=== PATIENT | male | born 1980 | race Two or more races ===

== ENCOUNTER 2023-12-19 08:37 | Emergency (ER) | payer OTHER ==
[~2023-12-19] VITALS: Ht 185.4 cm; Wt 86.2 kg
[2023-12-19] MEDS ORDERED: SODIUM CHLORIDE 0.45 % 500 ML IV STA (09:26)
[2023-12-19 10:03] LABS: PH,URINE 6.5 (5.0-8.0); URINE APPEARANCE Clear; URINE BILIRRUBIN Negative (NEGATIVE); URINE BLOOD Negative; URINE COLOR Yellow; URINE GLUCOSE Negative (NEGATIVE); URINE LEUKOCYTE Negative; URINE NITRATE Negative; URINE PROTEIN Negative (NEGATIVE)
[2023-12-19 10:04] LABS: URINE EPITHELIAL CELLS 1.5 uL (0.0-38.8); URINE WBC 2.5 uL (0.0-23.2)
[2023-12-19 10:06] LABS: URINE BACTERIA 1.2 uL (0.0-1933); URINE RBC 1.5 uL (0.0-20.8)
[2023-12-19 10:13] LABS: HEMATOCRIT 46.3 % (39.0-48.0); HEMOGLOBIN 16.1 g/dL (13-16.00); MEAN CORPUSCULAR HEMOGLOBIN 29.8 pg (27.00-32.0); MEAN CORPUSCULAR HGB CONC 34.7 g/dl (32.0-36.0); PLATELET COUNT 311 K/uL (150-450); RED BLOOD COUNT 5.38 M/uL (4.00-6.00); RED CELL DISTRIBUTION WIDTH 13.3 % (11.5-14.5)
[2023-12-19 10:21] LABS: CALCIUM 9.4 mg/dL (8.5-10.1); CREATININE SERUM 1.08 mg/dL (0.70-1.30); GFR 75.35; POTASSIUM 4.62 mEq/L (3.5-5.1)
== END 2023-12-19 13:20 | disposition home or self-care (01) ==
LOC: ER 08:37
PROVIDERS: General Practice
DX: R10.9 Unspecified abdominal pain (principal)